=== PATIENT | female | born 1990 | race Caucasian/White ===

== ENCOUNTER 2016-11-01 16:40 | Observation (INO) | payer OTHER ==
[~2016-11-01] VITALS: Ht 1 cm; Wt 0.5 kg
[2016-11-01] MEDS ORDERED: TERBUTALINE SULFATE 1 MG/ML 1ML VIAL SC ONE ×2 (17:22→17:30)
== END 2016-11-01 18:58 | disposition home or self-care (01) | DRG 781 ==
LOC: LDRP 16:40
PROVIDERS: ADMIT Specialist; ATTEND Specialist
DX: O62.9 Abnormality of forces of labor, unspecified (principal); O26.893 Other specified pregnancy related conditions, third trimester; N89.8 Other specified noninflammatory disorders of vagina; Z3A.34 34 weeks gestation of pregnancy
CPT/HCPCS: 59025; 96372; G0378; G0434; J3105

== ENCOUNTER 2016-11-03 22:46 | Observation (INO) | payer OTHER ==
[2016-11-03 23:16] LABS: Urine Bilirubin Negative (Negative); Urine Blood Negative /uL (Negative); Urine Color Yellow (Yellow); Urine Glucose Normal (Normal); Urine Ketone Negative (Negative); Urine Mucus FEW (None Seen); Urine Nitrite Negative (Negative); Urine RBC 3 /hpf (0 - 4); Urine Squamous Epithelial Cell MOD /hpf (<5); Urine Urobilinogen Normal (Negative); Urine pH 5.5 (5.0-8.0)
[2016-11-03] MEDS ORDERED: TERBUTALINE SULFATE 1 MG/ML 1ML VIAL SC ONE (23:27)
[2016-11-03] MEDS ORDERED: TERBUTALINE SULFATE 1 MG/ML 1ML VIAL SC PRN (23:30)
[2016-11-03] MEDS ORDERED: cefTRIAXone W LIDOCAINE 1 GM IM IM ONE (23:30)
[2016-11-03] MEDS ORDERED: cefTRIAXone SOD 1,000 MG VL ONE (23:33)
[2016-11-03] MEDS ORDERED: LIDOCAINE 2%HCL (LOCAL ANESTH.) INJ 20ML MDV ONE (23:34)
== END 2016-11-04 00:11 | disposition home or self-care (01) | DRG 998 ==
LOC: LDRP 22:46
PROVIDERS: ADMIT Specialist; ATTEND Specialist
DX: O23.40 Unspecified infection of urinary tract in pregnancy, unspecified trimester (principal); O26.899 Other specified pregnancy related conditions, unspecified trimester; R10.9 Unspecified abdominal pain; Z3A.00 Weeks of gestation of pregnancy not specified
CPT/HCPCS: 59025; 81001; 96372; G0378; J0696; J3105

== ENCOUNTER 2016-12-10 16:00 | Inpatient (IN) | payer MEDICAID ==
[~2016-12-10] VITALS: Ht 170.2 cm; Wt 81.6 kg
[2016-12-10] MEDS ORDERED: LACT. RINGERS/OXYTOCIN 20UNITS 1,000 ML IV SCH (16:03)
[2016-12-10] MEDS ORDERED: METHYLERGONOVINE MALEATE 0.2 MG/ML AMP IM PRN (16:15)
[2016-12-10] MEDS ORDERED: LIDOCAINE 2%HCL (LOCAL ANESTH.) INJ 20ML MDV IJ PRN (16:15)
[2016-12-10] MEDS ORDERED: PHISODERM TOP SOLN 240ML BTL TOP PRN (16:15)
[2016-12-10] MEDS ORDERED: CARBOPROST TROMETHAMINE 250 MCG/1ML VIAL IM PRN (16:15)
[2016-12-10] MEDS ORDERED: WITCH HAZEL-GLYCERIN PAD TOP PRN (16:15)
[2016-12-10] MEDS ORDERED: NALBUPHINE HCL 10 MG/1ml INJECTION IV PRN (16:15)
[2016-12-10 16:35] LABS: Urine Bilirubin Negative (Negative); Urine Blood Negative /uL (Negative); Urine Color Yellow (Yellow); Urine Glucose Normal (Normal); Urine Ketone Negative (Negative); Urine Nitrite Negative (Negative); Urine RBC 1 /hpf (0 - 4); Urine Squamous Epithelial Cell FEW /hpf (<5); Urine Urobilinogen Normal (Negative)
[2016-12-10] MEDS ORDERED: PREN-96 PO (17:08)
[2016-12-10 17:12] LABS: Basophils # (auto) 0 uL; Basophils % (auto) 0.3 % (0.0-2.0); Eosinophils # (auto) 0.1 uL; Hematocrit 33.5 % (36.0-46.0); Hemoglobin 11.2 g/dL (12.2-16.2); Lymphocytes # (auto) 1.7 uL; Lymphocytes % (auto) 16.1 % (10.0-50.0); Mean Corpuscular Hemoglobin 30.9 pg (28.0-32.0); Mean Corpuscular Hgb Conc. 33.4 g/dL (32.0-36.0); Mean Corpuscular Volume 92.6 fL (80.0-100.0); Mean Platelet Volume 8.9 fL (7.4-10.4); Monocytes # (auto) 0.7 uL; Monocytes % (auto) 6.8 % (0.0-12.0); Neutrophils # (auto) 8.2 uL; Neutrophils % (auto) 75.8 % (37.0-80.0); Platelet Count (auto) 341 10^3/uL (140-450); Red Cell Distribution Width 14.2 % (11.6-16.0); White Blood Cell 10.8 10^3/uL (4.4-10.8)
[2016-12-10 17:29] LABS: Albumin 2.9 g/dL (3.4-5.0); BUN/Creatinine Ratio 9.7; Calcium 8.6 mg/dL (8.5-10.1); Potassium 3.6 mmol/L (3.5-5.1)
[2016-12-10 17:37] LABS: Bilirubin, Total 0.3 mg/dL (0.2-1.0); Total Protein 6.6 g/dL (6.4-8.2)
[2016-12-10 17:51] LABS: INR 0.92 (0.9-1.15); Partial Thromboplastin Time 28.2 sec (22.64-33.71); Prothrombin Time 9.9 sec (9.37-12.3)
[2016-12-10] MEDS ORDERED: MEPERIDINE HCL (50 MG/ML) 1 ML VIAL ONE (22:36)
[2016-12-10] MEDS ORDERED: PROMETHAZINE HCL 25 MG/ML 1ML ONE (22:38)
[2016-12-10] MEDS ORDERED: PHENERGAN 25 MG IV PRN (22:45)
[2016-12-10] MEDS ORDERED: MEPERIDINE HCL (50 MG/ML) 1 ML VIAL IV ONE (22:45)
[2016-12-10] MEDS ORDERED: fentaNYL W ROPIVACAINE 150 ML EPI SCH (23:30)
[2016-12-10] MEDS ORDERED: fentaNYL CITRATE 100 MCG/2 ML VL IV ONE (23:30)
[2016-12-10] MEDS ORDERED: ePHEDrine SULFATE 50 MG/ML AMP IV ONE (23:30)
[2016-12-10] MEDS ORDERED: LIDOCAINE HCL 2 %PF INJ 10ML AMP IJ ONE (23:30)
[2016-12-11] VITALS (7 sets, daily range): BP systolic 97–116; BP diastolic 50–94
[2016-12-11] MEDS: LACTATED RINGER'S 1,000 ML IV SCH ×2 (00:03→06:40)
[2016-12-11] MEDS ORDERED: ePHEDrine SULFATE 50 MG/ML AMP IV ONE (00:30)
[2016-12-11] MEDS ORDERED: NALOXONE HCL 0.4 MG/ML VIAL IV ONE (00:30)
[2016-12-11] MEDS ORDERED: fentaNYL W ROPIVACAINE 150 ML EPI SCH (00:30)
[2016-12-11] MEDS ORDERED: LACT. RINGERS/OXYTOCIN 20UNITS 500 ML IV ONE (03:11)
[2016-12-11] MEDS: IBUPROFEN 600 MG TAB PO PRN ×2 (05:33→16:47)
[2016-12-11] MEDS: DERMOPLAST 60ML BOTTLE TOP PRN ×2 (11:52→16:45)
[2016-12-12 03:06] VITALS: BP 110/63
[2016-12-12] MEDS: IBUPROFEN 600 MG TAB PO PRN (03:13)
[2016-12-12 07:49] VITALS: BP 121/72
== END 2016-12-12 09:30 | disposition home or self-care (01) | DRG 560 ==
LOC: LDRP 16:00
PROVIDERS: ADMIT Obstetrics & Gynecology; ATTEND Obstetrics & Gynecology
PROC: 10E0XZZ Delivery of Products of Conception, External Approach (ICD-10-PCS; principal; 2016-12-11)
PROC: 0UQMXZZ Repair Vulva, External Approach (ICD-10-PCS; 2016-12-11)
PROC: 3E0R3CZ (ICD-10-PCS; 2016-12-11)
PROC: 00HU33Z Insertion of Infusion Device into Spinal Canal, Percutaneous Approach (ICD-10-PCS; 2016-12-11)
DX: O48.0 Post-term pregnancy (principal); O70.0 First degree perineal laceration during delivery; Z37.0 Single live birth; Z3A.40 40 weeks gestation of pregnancy
CPT/HCPCS: 36415; 51702; 59025; 62282; 80053; 81001; 81002; 85025; 85610; 85730; 86850; 86900; 86901; 96365; 96366; 96372; 96375; G0434; J2590; J3010

== ENCOUNTER 2018-09-17 13:45 | Observation (INO) | payer MEDICAID ==
[~2018-09-17 13:45] MED LIST: PREN-96 PO
== END 2018-09-17 15:10 | disposition home or self-care (01) | DRG 566 ==
LOC: LDRP 13:45
PROVIDERS: ADMIT Obstetrics & Gynecology; ATTEND Obstetrics & Gynecology
DX: O48.0 Post-term pregnancy (principal); O62.9 Abnormality of forces of labor, unspecified; Z3A.40 40 weeks gestation of pregnancy
CPT/HCPCS: 59025; 76818; 81002; G0378

== ENCOUNTER 2018-09-18 04:21 | Inpatient (IN) | payer MEDICAID | END 2018-09-19 10:25 | disposition home or self-care (01) | LOC: LDRP 04:21 | PROC: 10E0XZZ Delivery of Products of Conception, External Approach (ICD-10-PCS; principal; ~2018-09-18) | PROC: 0HQ9XZZ Repair Perineum Skin, External Approach (ICD-10-PCS; ~2018-09-18) | DX: O71.82 Other specified trauma to perineum and vulva (principal); O72.1 Other immediate postpartum hemorrhage; Z37.0 Single live birth; Z3A.40 40 weeks gestation of pregnancy ==